=== PATIENT | male | born 1960 | race Caucasian/White ===

== ENCOUNTER 2022-02-01 15:19 | Emergency (ER) | payer SELFPAY ==
[~2022-02-01] VITALS: Ht 188 cm; Wt 88.6 kg
[2022-02-01 15:29] VITALS: BP 135/72
[2022-02-01] MEDS ORDERED: hydrOXYzine 25 MG tablet PO ONE (17:40)
== END 2022-02-01 18:51 | disposition home or self-care (01) ==
LOC: ER 15:21
DX: F41.9 Anxiety disorder, unspecified (principal); R07.89 Other chest pain; R00.0 Tachycardia, unspecified; Z72.89 Other problems related to lifestyle
CPT/HCPCS: 93005; 99283; Q0177